=== PATIENT | female | born 1960 | race Caucasian/White ===

== ENCOUNTER → 2017-01-08 | Outpatient (CLI) | payer OTHER ==
[2016-10-08 16:42] VITALS: BP 192/97
[~2017-01-08] MED LIST: ACET-704 PO; BENZ100C PO; CYCL5TAB PO; HYDR-971 PO; NAPR500T8 PO; PRED50TA PO; PROAIR RESPICL90 MCG IH
--- NOTE | 2017-01-08 08:58 | RAD ---
Exam performed: AAA screening. Date of service: 01/08/17. Comparison: None available Technique: Real-time grayscale imaging of the aorta is performed and images are obtained. Findings: There is a mild dilation of the mid to distal abdominal aorta which measures 2.6 cm in maximum dimension. This is below 3 cm and is not considered an aneurysm. The proximal aorta measures 1.7 cm in maximum dimension and the distal aorta measures 2.2 cm in maximum diameter. Scanning in the area of lump in the mid epigastric region does not demonstrate any solid or cystic mass lesions. Impression: 1. Mild ectasia of the mid abdominal aorta without definite aneurysm. 2. No definite sonographic abnormality seen in the area of lump in the epigastric region.
== END | disposition home or self-care (01) ==
LOC: US 07:32
PROVIDERS: ATTEND Family Medicine
DX: I77.811 Abdominal aortic ectasia (principal); M25.512 Pain in left shoulder
CPT/HCPCS: 76770

== ENCOUNTER → 2017-01-09 | Outpatient (CLI) | payer OTHER ==
[2016-10-08 16:42] VITALS: BP 192/97
--- NOTE | 2017-01-09 10:39 | RAD ---
PROCEDURE MR of the left shoulder HISTORY Chronic left shoulder pain. History of rotator cuff surgery. COMPARISON July 22, 2015. TECHNIQUE Standard noncontrast images are obtained. FINDINGS There is mild motion degradation The acromioclavicular joint appears postsurgical. No acute findings or undersurface mass-effect identified. Mild signal identified within the supraspinatus and infraspinatus tendons, compatible with tendinosis. No measurable fluid gap or rupture of the rotator cuff. Subscapularis tendon also demonstrates some tendinosis without measurable tear. No advanced rotator cuff muscle atrophy or significant change in muscle bulk. Trace subdeltoid bursal fluid. There is mild heterogeneous signal and blunting of the superior labrum, appears slightly greater than what was seen on the prior study. This could represent sequela of surgical intervention, but if there has not been superior labral surgery, this is compatible with some progressive degenerative tearing. No significant joint effusion. Biceps tendinosis without rupture or dislocation. No evidence of a bone lesion. No acute fracture. No acute soft tissue injury. IMPRESSION 1. Rotator cuff tendinosis without measurable tear or rupture. 2. Mild progressive signal heterogeneity at the superior labrum. If not postsurgical, this suggests mild progression of mild degenerative tearing. Electronically signed by: Parminder Simeon MD (Jan 09, 2017 10:37:40)
== END | disposition home or self-care (01) ==
LOC: MRI 08:13
PROVIDERS: ATTEND Family Medicine
DX: M75.102 Unspecified rotator cuff tear or rupture of left shoulder, not specified as traumatic (principal)
CPT/HCPCS: 73221

== ENCOUNTER 2017-01-15 12:40 | Emergency (ER) | payer OTHER ==
[~2017-01-15 12:40] MED LIST changes: -ACET-704 PO; -BENZ100C PO; -HYDR-971 PO; -NAPR500T8 PO; -PRED50TA PO; -PROAIR RESPICL90 MCG IH
--- NOTE | 2017-01-15 13:45 | RAD ---
EXAM: Chest 2 views. HISTORY: Productive cough, chest tightness, hypertension. COMPARISON: 10/08/2016. FINDINGS: Frontal and lateral views of the chest are obtained. There are no confluent infiltrates. Hyperinflation is consistent with chronic obstructive pulmonary disease. There is a calcified granuloma in the left base. Calcified mediastinal lymph nodes are likely secondary to old granulomatous disease. There is no pneumothorax or pleural effusion. The heart is not enlarged. IMPRESSION: 1. Chronic obstructive pulmonary disease. No confluent infiltrates.
[2017-01-15] MEDS ORDERED: BENZONATATE 100 MG CAPSULE. PO ONE (14:00)
[2017-01-15] MEDS ORDERED: PREDNISONE 20 MG TABLET PO ONE (14:00)
[2017-01-15] MEDS ORDERED: IPRATRPIUM/ALBUTEROL 0.5/2.5MG 3 ML NEBU. NEB ONE (14:00)
[2017-01-15] MEDS ORDERED: PROAIR RESPICL90 MCG IH (16:15)
[2017-01-15] MEDS ORDERED: ACET-704 PO (16:15)
[2017-01-15] MEDS ORDERED: NAPR500T8 PO (16:15)
[2017-01-15] MEDS ORDERED: PRED50TA PO (16:15)
[2017-01-15] MEDS ORDERED: BENZ100C PO (16:15)
--- NOTE | 2017-01-15 16:15 | PHYS DOC ---
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 Patient denies any fever patient has history of COPD and is currently a smoker. Patient is also complaining of right lateral ankle pain after rolling it one week ago. Patient denies any loss of consciousness. Review of Systems Review of Systems Constitutional: Denies fever or chills [] Eyes: Denies change in visual acuity, redness, or eye pain [] HENT: Denies nasal congestion or sore throat [] Respiratory: cough Cardiovascular: No additional information not addressed in HPI [] GI: Denies abdominal pain, nausea, vomiting, bloody stools or diarrhea [] : Denies dysuria or hematuria [] Musculoskeletal: Right ankle pain Integument: Denies rash or skin lesions [] Neurologic: Denies headache, focal weakness or sensory changes [] Endocrine: Denies polyuria or polydipsia [] Current Medications Current Medications Current Medications Medications (Trade) Dose Ordered Sig/Mateusz Start Time Stop Time Status Last Admin Dose Admin Albuterol/ Ipratropium (Duoneb) 3 ml 1X ONCE 01/15/17 14:00 01/15/17 14:01 DC 01/15/17 14:21 3 ML Benzonatate (Tessalon Perle) 100 mg 1X ONCE 01/15/17 14:00 01/15/17 14:01 DC 01/15/17 14:08 100 MG Prednisone (Prednisone) 60 mg 1X ONCE 01/15/17 14:00 01/15/17 14:01 DC 01/15/17 14:07 60 MG Allergies Allergies Allergies Coded Allergies Type Severity Reaction Last Updated Verified No Known Drug Allergies 03/24/14 No Physical Exam Physical Exam Constitutional: Well developed, well nourished, no acute distress, non-toxic appearance. [] HENT: Normocephalic, atraumatic, bilateral external ears normal, oropharynx moist, no oral exudates, nose normal. [] Eyes: PERRLA, EOMI, conjunctiva normal, no discharge. [] Neck: Normal range of motion, no tenderness, supple, no stridor. [] Cardiovascular:Heart rate regular rhythm, no murmur [] Lungs & Thorax: Bilateral breath sounds clear to auscultation [] Abdomen: Bowel sounds normal, soft, no tenderness, no masses, no pulsatile masses. [] Skin: Warm, dry, no erythema, no rash. [] Back: No tenderness, no CVA tenderness. [] Extremities: Right ankle with no obvious deformity or ecchymosis, +2 right ankle soft tissue swelling, tenderness on palpation of the right lateral ankle. Full range of motion to the right ankle. Adequate flexion and extension of the right foot. +2 right pedal pulse. Cap refill less than 2 seconds the right lower extremity. Neurologic: Alert and oriented X 3, normal motor function, normal sensory function, no focal deficits noted. [] Psychologic: Affect normal, judgement normal, mood normal. [] Current Patient Data Vital Signs Vital Signs Date Time Temp Pulse Resp B/P Pulse Ox O2 Delivery O2 Flow Rate FiO2 01/15/17 14:21 96 Room Air 01/15/17 13:07 98.4 78 20 98.4 EKG EKG [] Radiology/Procedures Radiology/Procedures [] Course & Med Decision Making Course & Med Decision Making Pertinent Labs and Imaging studies reviewed. (See chart for details) Patient is in the ED with a productive cough for 1 week as well as right ankle pain after rolling her ankle. Chest x-ray interpreted by radiologist is noted for COPD. Patient is still a smoker, she was encouraged to consider smoking cessation. Patient to be discharged with Z-Warren, albuterol inhaler, and Tessalon Perles. Right ankle x-rays interpreted by Dr. Finch are negative for any acute findings. Discharged with ibuprofen, Tylenol 3, for the right ankle sprain. Air cast was applied to the right ankle by the ED RN, neurovascular exam done by , cap refill <2 seconds Dragon Disclaimer Dragon Disclaimer This electronic medical record was generated, in whole or in part, using a voice recognition dictation system. Departure Departure Impression: Primary Impression: Acute bronchitis Additional Impressions: Right ankle sprain Smoking addiction Disposition: HOME, SELF-CARE Condition: STABLE Referrals: NO PCP (PCP) MERCEDES VENTURA MD Follow-up with Dr. Ventura in one week if pain continues to your ankle Patient Instructions: Acute Bronchitis, Ankle Sprain Additional Instructions: You were seen for ankle sprain and bronchitis. Consider smoking cessation. Ice and elevate your ankle. Wear the air cast provided as needed. Follow-up with your own doctor or the provided doctor in one week. Scripts Benzonatate (Tessalon Perle)100 Mg Capsule1 Cap PO TID #30 CAP Prov:SHAHEED JONES APRN 01/15/17 Albuterol Sulfate (Proair Respiclick)90 Mcg Aer.pow.ba1 Puff IH PRN Q6HRS PRN SHORTNESS OF BREATH #1 INHALER Prov:SHAHEED JONES APRN 01/15/17 Prednisone 50 Mg Tablet1 Tab PO DAILY #5 TAB Prov:SHAHEED JONES APRN 01/15/17 Naproxen 500 Mg Tablet.dr1 Tab PO BID #60 TAB Ref 2 Prov:SHAHEED JONES APRN 01/15/17 Acetaminophen With Codeine (Tylenol With Codeine #3 Tablet)1 Each Tablet1 Tab PO PRN Q6HRS PRN PAIN #30 TAB Prov:SHAHEED JONES [employer]ER 01/15/17 Problem Qualifiers Primary Impression: Acute bronchitis Bronchitis organism: unspecified organism Qualified Code: J20.9 - Acute bronchitis, unspecified Additional Impressions: Right ankle sprain Encounter type: initial encounter Involved ligament of ankle: unspecified ligament Qualified Code: S93.401A - Sprain of unspecified ligament of right ankle, initial encounter SHAHEED JONES APRN Jan 15, 2017 16:15
--- NOTE | 2017-01-15 16:21 | RAD ---
Three-view right ankle radiographs 01/15/2017 Clinical history: Right ankle injury one week ago with lateral ankle pain. AP, lateral and oblique digital radiographs of the right ankle were obtained. The right ankle mortise is intact. No fracture or dislocation is seen. Mild to moderate degenerative changes are seen involving the right ankle joint. Mild enthesophyte formation is seen involving the right posterior calcaneus. Impression: No fracture or dislocation of the right ankle is seen.
[2017-01-15 16:31] VITALS: BP 110/72
== END 2017-01-15 16:32 | disposition home or self-care (01) ==
LOC: ER 12:40
DX: S93.401A Sprain of unspecified ligament of right ankle, initial encounter (principal); J20.9 Acute bronchitis, unspecified; I10 Essential (primary) hypertension; J44.9 Chronic obstructive pulmonary disease, unspecified; G89.29 Other chronic pain; Z90.710 Acquired absence of both cervix and uterus; Z90.89 Acquired absence of other organs; F17.200 Nicotine dependence, unspecified, uncomplicated; X50.9XXA Other and unspecified overexertion or strenuous movements or postures, initial encounter; Y93.89 Activity, other specified; Y99.8 Other external cause status; Y92.89 Other specified places as the place of occurrence of the external cause
CPT/HCPCS: 71020; 73610; 94640; 99284; J7512; J7620; L4350

== ENCOUNTER 2017-01-17 14:07 | Emergency (ER) | payer OTHER ==
[~2017-01-17] VITALS: Ht 160 cm; Wt 49.9 kg
[~2017-01-17 14:07] MED LIST changes: +ACET-704 PO; +BENZ100C PO; +NAPR500T8 PO; +PRED50TA PO; +PROAIR RESPICL90 MCG IH
[2017-01-17 14:28] VITALS: BP 132/65
[2017-01-17] MEDS ORDERED: HYDR-971 PO (15:02)
--- NOTE | 2017-01-17 15:02 | PHYS DOC ---
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 She was seen here 2 days ago and diagnosed with bronchitis and a right ankle sprain. She was prescribed Tylenol #3 for her ankle pain. She was also prescribed naproxen, an albuterol inhaler, Tessalon perles, and prednisone. She has taken all of the other medications in the past without reaction. She believes that the nausea and vomiting are due to the codeine in the Tylenol #3. She is wearing the air cast provided at her last visit but is still having considerable pain in the right ankle. She states that she absolutely must return to work because she cannot afford to miss any more days. She has an appointment scheduled with Dr. Ventura in orthopedics in 2 days for her ankle. She does not have a PCP. Review of Systems Review of Systems Constitutional: Denies fever or chills. [] GI: Denies abdominal pain, bloody stools or diarrhea. Reports nausea and vomiting. Musculoskeletal: Denies back pain. Reports right ankle pain. Integument: Denies rash or skin lesions. [] Neurologic: Denies headache, focal weakness or sensory changes. [] Allergies Allergies Allergies Coded Allergies Type Severity Reaction Last Updated Verified morphine Allergy Intermediate Itching 01/17/17 Yes tramadol Adverse Reaction Severe 'seizures' 01/17/17 Yes acetaminophen Adverse Reaction Intermediate Nausea and Vomiting 01/17/17 Yes codeine Adverse Reaction Intermediate Nausea and Vomiting 01/17/17 Yes naproxen Adverse Reaction Intermediate Nausea and Vomiting 01/17/17 Yes Physical Exam Physical Exam Constitutional: Well developed, well nourished, no acute distress, non-toxic appearance. [] HENT: Normocephalic, atraumatic, oropharynx moist. [] Eyes: PERRLA, EOMI, conjunctiva normal, no discharge. [] Abdomen: Bowel sounds normal, soft, no tenderness, no masses, no pulsatile masses. [] Skin: Warm, dry, no erythema, no rash. There is minimal ecchymosis and edema over the lateral right foot and ankle. Extremities: Right lateral malleolus and 5th metatarsal tenderness, ROM mildly decreased due to pain, mild edema. 2+ pedal pulses. Less than 2 second capillary refill in the toes. Light touch sensation intact in the toes. Neurologic: Alert and oriented X 3, normal motor function, normal sensory function, no focal deficits noted. [] Psychologic: Affect normal, judgement normal, mood normal. [] Current Patient Data Vital Signs Vital Signs Date Time Temp Pulse Resp B/P Pulse Ox O2 Delivery O2 Flow Rate FiO2 01/17/17 14:28 98.0 79 20 97 Room Air 98.0 EKG EKG [] Radiology/Procedures Radiology/Procedures [] Course & Med Decision Making Course & Med Decision Making Pertinent Labs and Imaging studies reviewed. (See chart for details) [] Dragon Disclaimer Dragon Disclaimer This electronic medical record was generated, in whole or in part, using a voice recognition dictation system. Departure Departure Impression: Primary Impression: Adverse drug effect Additional Impression: Ankle sprain Disposition: 01 HOME, SELF-CARE Condition: STABLE Referrals: DENNIS WILSON MD (PCP) Patient Instructions: Ankle Sprain, [id number], Drug Reaction, GI Intolerance Additional Instructions: Please take the prescribed pain medication as directed. Do not drive or operate heavy machinery while taking pain medication. Please follow up with Dr. Ventura as scheduled. Return to the emergency department if you have any new or concerning symptoms. Scripts Hydrocodone/Apap 5-325 ([place] 5-325 Tablet)1 Each Tablet1 Tab PO PRN Q6HRS PRN PAIN #20 TAB Prov:SADIA FOX 01/17/17 Problem Qualifiers Primary Impression: Adverse drug effect Encounter type: initial encounter Qualified Code: T88.7XXA - Unspecified adverse effect of drug or medicament, initial encounter Additional Impression: Ankle sprain Encounter type: initial encounter Involved ligament of ankle: unspecified ligament Laterality: right Qualified Code: S93.401A - Sprain of unspecified ligament of right ankle, initial encounter SADIA FOX Jan 17, 2017 15:02
== END 2017-01-17 15:07 | disposition home or self-care (01) ==
LOC: ER 14:07
DX: S93.401A Sprain of unspecified ligament of right ankle, initial encounter (principal); T50.995A Adverse effect of other drugs, medicaments and biological substances, initial encounter; F17.210 Nicotine dependence, cigarettes, uncomplicated; G89.29 Other chronic pain; I10 Essential (primary) hypertension; Z88.6 Allergy status to analgesic agent; Z88.5 Allergy status to narcotic agent; X58.XXXA Exposure to other specified factors, initial encounter; Y99.8 Other external cause status; Y93.89 Activity, other specified; Y92.89 Other specified places as the place of occurrence of the external cause
CPT/HCPCS: 99283

== ENCOUNTER → 2017-03-21 | Outpatient (CLI) | payer OTHER ==
[~2017-03-21] MED LIST changes: +HYDR-971 PO
--- NOTE | 2017-03-21 12:38 | RAD ---
Exam performed: CT abdomen pelvis without contrast. History: Abdominal aortic aneurysm. Date of service: 03/21/17. Comparison: Limited abdominal ultrasound from 01/08/17 Technique: Contiguous helical acquisitions are obtained through the abdomen and pelvis without oral IV contrast. Sagittal and coronal reformatted images are obtained and reviewed. Findings: Linear right basilar opacity likely atelectasis. Calcifications in the left lung base. No pleural effusion. Heart size is normal. Lack of IV contrast limits evaluation of abdominal viscera, however the liver, spleen and gallbladder appears normal. Pancreas is poorly visualized. The pancreatic tail is partially seen, body and head of pancreas is suboptimally evaluated. Atheromatous aortic calcification with mild ectasia of the infrarenal aorta measures up to 2.8 cm. Questionable fullness in the periaortic region may be related to adjacent bowel loops or surrounding pancreas. Both adrenal glands and bilateral kidneys are normal in size. No hydronephrosis or nephrolithiasis is seen. Small bowel loops are nondilated and unremarkable. Scattered stool in the colon. Urinary bladder is distended. Colon is normal. Mild diverticulosis. No abnormal fluid collections or pelvic mass lesions seen. Interrogation of bone windows demonstrates spondylotic changes. Impression: 1. Study limited due to noncontrast technique. 2. Right basilar atelectasis. 3. Questionable fullness in the periaortic region. It is not clear if this is related to adjacent nonopacified loops and surrounding pancreas. Periaortic lymphadenopathy or soft tissue abnormality is seen in retroperitoneal fibrosis cannot be excluded with certainty. Evaluation with contrast-enhanced CT of the abdomen and pelvis may be of additional benefit. PQRS Compliance Statement: One or more of the following individualized dose reduction techniques were utilized for this examination: 1. Automated exposure control 2. Adjustment of the mA and/or kV according to patient size 3. Use of iterative reconstruction technique
== END | disposition home or self-care (01) ==
LOC: CT 12:46
PROVIDERS: ATTEND Family Medicine
DX: J98.11 Atelectasis (principal)
CPT/HCPCS: 74176

== ENCOUNTER 2017-04-11 14:20 | Emergency (ER) | payer MEDICARE, OTHER ==
[~2017-04-11] VITALS: Ht 160 cm; Wt 45.4 kg
[2017-04-11] MEDS ORDERED: IOHEXOL 300 MG/ML 75 ML VIAL IV ONE (15:15)
[2017-04-11] MEDS ORDERED: ASPIRIN CHEWABLE 81 MG TABLET. PO ONE (15:30)
[2017-04-11] MEDS ORDERED: CONTRAST GIVEN MC PRN (15:30)
[2017-04-11 15:51] LABS: BASO # 0.1 x10^3/uL (0.0-0.2); BASO % 1 % (0-3); EOS % 1 % (0-3); LYMPH # 2.1 x10^3/uL (1.0-4.8); LYMPH % 27 % (24-48); MEAN CORPUSCULAR HEMOGLOBIN 34 pg (25-35); MEAN CORPUSCULAR HGB CONC 34 g/dL (31-37); MEAN CORPUSCULAR VOLUME 99 fL (79-100); MONO % 5 % (0-9); NEUT % 66 % (31-73); PLATELET COUNT 381 x10^3/uL (140-400); RED BLOOD COUNT 4.14 x10^6/uL (3.50-5.40); RED CELL DISTRIBUTION WIDTH 13.9 % (11.5-14.5); WHITE BLOOD COUNT 7.7 x10^3/uL (4.0-11.0)
--- NOTE | 2017-04-11 16:06 | EKG ---
[facility] [address] [place] [address] Test Date: 2017-04-11 Test Time: 14:31:19 Pat Name: ORLIN LANTIGUA Department: Room: Gender: F Director Of Finance: : 1960 Requested By: LEO KINSEY Order Number: [id number] Reading MD: Troy Rowe Measurements Intervals [place] Rate: 67 P: 59 VA: 142 QRS: 53 QRSD: 80 T: 33 QT: 396 QTc: 421 Interpretive Statements SINUS RHYTHM Electronically Signed On 04-15-2017 12:50:27 CDT by Troy Rowe
--- NOTE | 2017-04-11 16:09 | PHYS DOC ---
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 Patient states the pain has been constant and nothing makes it better or worse. Patient scrubbed pain is central nonradiating. Patient has no significant cardiac history however the smoker with hypertension. Patient does note that she is a AAA that measured 2.9-3 cm in February. Patient denies any nausea vomiting diarrhea. Patient denies any fevers. Patient is no other complaints. Pertinent exam findings: Heart was regular rate and rhythm without murmurs Lungs are clear to auscultation bilaterally without crackles wheezes or rales ED course: Patient was seen and evaluated emergency room CBC, CMP, EKG, CT angiogram of the chest was ordered, aspirin was given 1715: Patient reexamined and she still having chest tightness and I recommended the patient be admitted to hospital for further cardiac workup. Patient declined admission under seen all risks including and disability and wanted to go home and follow-up with her PCP tomorrow. Strict return precautions were given to the patient. Patient will be discharged home. Pertinent results: 1431: EKG shows normal sinus rhythm rate of [address] angiogram of the chest unremarkable for acute PE or dissection Troponin negative MDM: After reviewing the chart, CC/HPI/PMH, physical exam, [lab results], [ radiological results], I do not believe the patient have an acute NE, PE, thoracic aortic dissection. Given the patient's ongoing chest tightness I recommended the patient be admitted to the hospital for serial EKGs and troponins. Patient declined the admission under seen all risks including and disability. Patient to go home and follow-up with PCP tomorrow. Additional verbal discharge instructions were provided to the patient and that if symptoms get worse or any new symptoms arise that are worrisome to the patient she is to return to the emergency room immediately Review of Systems Review of Systems GEN: Denies fevers, chills, sweats HEENT: Denies blurred vision, sore throat CV: chest pain RESP: Denies shortness of air, cough GI: Denies n/v/d NEURO: Denies confusion, dizziness MSK: Denies weakness, joint pain/swelling Current Medications Current Medications Current Medications Medications (Trade) Dose Ordered Sig/Mateusz Start Time Stop Time Status Last Admin Dose Admin Aspirin (Children'S Aspirin) 324 mg 1X ONCE 04/11/17 15:30 04/11/17 15:31 DC 04/11/17 15:35 324 MG Info (Do NOT chart on this entry -- for MONITORING) 1 each PRN DAILY PRN 04/11/17 15:30 04/13/17 15:29 Iohexol (Omnipaque 300 Mg/ml) 75 ml 1X ONCE 04/11/17 15:15 04/11/17 15:17 DC 04/11/17 16:49 75 ML Lorazepam (Ativan) 0.5 mg 1X ONCE 04/11/17 16:15 04/11/17 16:16 DC 04/11/17 16:17 0.5 MG Allergies Allergies Allergies Coded Allergies Type Severity Reaction Last Updated Verified morphine Allergy Intermediate Itching 01/17/17 Yes tramadol Adverse Reaction Severe 'seizures' 01/17/17 Yes acetaminophen Adverse Reaction Intermediate Nausea and Vomiting 01/17/17 Yes codeine Adverse Reaction Intermediate Nausea and Vomiting 01/17/17 Yes naproxen Adverse Reaction Intermediate Nausea and Vomiting 01/17/17 Yes Physical Exam Physical Exam GEN.: No apparent distress. Alert and oriented. HEENT: Head is normocephalic, atraumatic NECK: Supple. LUNGS: CTAB. HEART: RRR, S1, S2 present. Peripheral pulses intact ABDOMEN: Soft, nontender. Positive bowel sounds. EXTREMITIES: Without any cyanosis. NEUROLOGIC: Normal speech, normal tone PSYCHIATRIC: Normal affect, normal mood. SKIN: No ulcerations Current Patient Data Vital Signs Vital Signs Date Time Temp Pulse Resp B/P (MAP) Pulse Ox O2 Delivery O2 Flow Rate FiO2 04/11/17 14:41 98.4 71 20 130/78 (95) 99 Room Air 98.4 Lab Values Laboratory Tests Test 04/11/17 15:40 White Blood Count 7.7 x10^3/uL (4.0-11.0) Red Blood Count 4.14 x10^6/uL (3.50-5.40) Hemoglobin 14.0 g/dL (12.0-15.5) Hematocrit 41.0 % (36.0-47.0) Mean Corpuscular Volume 99 fL (79-100) Mean Corpuscular Hemoglobin 34 pg (25-35) Mean Corpuscular Hemoglobin Concent 34 g/dL (31-37) Red Cell Distribution Width 13.9 % (11.5-14.5) Platelet Count 381 x10^3/uL (140-400) Neutrophils (%) (Auto) 66 % (31-73) Lymphocytes (%) (Auto) 27 % (24-48) Monocytes (%) (Auto) 5 % (0-9) Eosinophils (%) (Auto) 1 % (0-3) Basophils (%) (Auto) 1 % (0-3) Neutrophils # (Auto) 5.0 x10^3uL (1.8-7.7) Lymphocytes # (Auto) 2.1 x10^3/uL (1.0-4.8) Monocytes # (Auto) 0.4 x10^3/uL (0.0-1.1) Eosinophils # (Auto) 0.1 x10^3/uL (0.0-0.7) Basophils # (Auto) 0.1 x10^3/uL (0.0-0.2) Sodium Level 138 mmol/L (136-145) Potassium Level 3.8 mmol/L (3.5-5.1) Chloride Level 100 mmol/L (98-107) Carbon Dioxide Level 31 mmol/L (21-32) Anion Gap 7 (6-14) Blood Urea Nitrogen 12 mg/dL (7-20) Creatinine 0.7 mg/dL (0.6-1.0) Estimated GFR (Cockcroft-Gault) 87.2 BUN/Creatinine Ratio 17 (6-20) Glucose Level 85 mg/dL (70-99) Calcium Level 8.8 mg/dL (8.5-10.1) Total Bilirubin 0.2 mg/dL (0.2-1.0) Aspartate Amino Transferase (AST) 17 U/L (15-37) Alanine Aminotransferase (ALT) 21 U/L (14-59) Alkaline Phosphatase 47 U/L (46-116) Troponin I Quantitative < 0.017 ng/mL (0.000-0.055) Total Protein 6.4 g/dL (6.4-8.2) Albumin 3.7 g/dL (3.4-5.0) Albumin/Globulin Ratio 1.4 (1.0-1.7) Laboratory Tests 04/11/17 15:40 Laboratory Tests 04/11/17 15:40 EKG EKG [] Radiology/Procedures Radiology/Procedures CT angios of the chest: Impression: 1. No acute abnormality identified in the chest. 2. No evidence of thoracic aortic dissection. Ectatic ascending aorta. 3. Emphysema.[] Course & Med Decision Making Course & Med Decision Making Pertinent Labs and Imaging studies reviewed. (See chart for details) [] Dragon Disclaimer Dragon Disclaimer This electronic medical record was generated, in whole or in part, using a voice recognition dictation system. Departure Departure Impression: Primary Impression: Chest wall pain Disposition: 01 HOME, SELF-CARE Condition: IMPROVED Referrals: ROMERO JARVIS MD (PCP) Patient Instructions: Chest Pain (Nonspecific) Additional Instructions: Recommend follow-up with PCP in one to 2 days LEO KINSEY DO April 11, 2017 16:09
[2017-04-11 16:15] LABS: CALCIUM 8.8 mg/dL (8.5-10.1); CREATININE 0.7 mg/dL (0.6-1.0); GFR 87.2; POTASSIUM 3.8 mmol/L (3.5-5.1)
[2017-04-11] MEDS ORDERED: LORazepam 1 MG TABLET PO ONE (16:15)
[2017-04-11 16:19] LABS: ALBUMIN 3.7 g/dL (3.4-5.0); ALBUMIN/GLOBULIN RATIO 1.4 (1.0-1.7); TOTAL BILIRUBIN 0.2 mg/dL (0.2-1.0); TOTAL PROTEIN 6.4 g/dL (6.4-8.2)
[2017-04-11 16:30] VITALS: BP 124/76
--- NOTE | 2017-04-11 17:03 | RAD ---
CT chest angiogram with contrast History: Chest pain, abdominal aortic aneurysm. Comparison: None. Technique: Helical CT angiogram of the chest with attention to the aorta was performed after the administration of intravenous contrast, 75 mL Omnipaque 300. Axial 2-D reconstructions were obtained. Rotating volume rendered 3-D reconstructions of the aorta were also obtained. One or more of the following individualized dose reduction techniques were utilized for the study: Automated exposure control Adjustment of mA and/or kV according to patient's size Use of iterative reconstruction technique. 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 Thoracic aorta is without evidence of dissection. Mid ascending thoracic aorta has diameter of 3.8 cm. Aortic arch has diameter 2.5 cm. Descending thoracic aorta has diameter 2.3 cm. Very mild aortic atherosclerosis is seen. No pericardial thickening is identified. Trachea and mainstem bronchi appear patent. Thyroid is symmetric. No mediastinal lymphadenopathy is seen. Examination was not performed to evaluate the pulmonary arteries and pulmonary arteries are not adequately opacified to evaluate for pulmonary embolism. Mild-moderate emphysematous changes of lungs are seen. No pneumothorax or pleural effusion is identified. Focal atelectasis versus scarring is seen at the right lower lobe. No pneumothorax or pleural effusion is seen. Visualized abdominal aorta demonstrates at least ectasia with a maximum dimension of 2.8 cm. Impression: 1. No acute abnormality identified in the chest. 2. No evidence of thoracic aortic dissection. Ectatic ascending aorta. 3. Emphysema.
== END 2017-04-11 17:25 | disposition home or self-care (01) ==
LOC: ER 14:20
DX: R07.89 Other chest pain (principal); F41.9 Anxiety disorder, unspecified; F32.9 Major depressive disorder, single episode, unspecified; H40.9 Unspecified glaucoma; I10 Essential (primary) hypertension; G89.29 Other chronic pain; F17.200 Nicotine dependence, unspecified, uncomplicated; Z90.710 Acquired absence of both cervix and uterus; Z88.5 Allergy status to narcotic agent; Z88.6 Allergy status to analgesic agent
CPT/HCPCS: 36415; 71275; 80053; 84484; 85027; 93005; 99285; Q9967

== ENCOUNTER → 2018-07-02 | Outpatient (CLI) | payer OTHER ==
--- NOTE | 2018-07-02 15:30 | KCIC ---
MR of the right shoulder Indication: Right shoulder pain and decreased range of motion. Comparison: July 22, 2015 Technique: Standard multiplanar sequences are obtained. Findings: Artifact: No significant image degradation. Acromioclavicular joint: There appear to be postsurgical changes, without significant undersurface mass effect. No acute findings. There is postoperative susceptibility artifact. Rotator cuff: * Supraspinatus-infraspinatus tendon: Postsurgical artifact. No evidence of full-thickness rupture or retraction. * Subscapularis tendon: Intact * Muscle bulk: Mild atrophy * Subacromial subdeltoid bursa: Trace effusion. Fluid: Trace glenohumeral effusion. Glenohumeral cartilage: Mildly degenerative. Labrum: No evidence of labral detachment. Biceps tendon: Very thin and poorly visualized, similar to prior study. Bones: Postsurgical changes and cystic change at the humeral head. No acute fracture. No aggressive bone destruction. Soft tissue: No acute findings. Impression: 1. Postsurgical changes at the rotator cuff and acromioclavicular joint. 2. No evidence of recurrent full-thickness rotator cuff tear. Electronically signed by: Parminder Simeon MD (07/02/2018 3:28 PM) [facility]
== END | disposition home or self-care (01) ==
LOC: KCIC MRI 13:40
PROVIDERS: ATTEND Family Medicine
DX: M19.011 Primary osteoarthritis, right shoulder (principal); M62.511 Muscle wasting and atrophy, not elsewhere classified, right shoulder; I10 Essential (primary) hypertension; Z98.890 Other specified postprocedural states; Z88.5 Allergy status to narcotic agent; Z88.6 Allergy status to analgesic agent; Z87.891 Personal history of nicotine dependence; Z90.710 Acquired absence of both cervix and uterus
CPT/HCPCS: 73221

== ENCOUNTER 2019-09-12 08:49 | Emergency (ER) | payer SELFPAY ==
[~2019-09-12] VITALS: Ht 160 cm; Wt 49.9 kg
[~2019-09-12 08:49] MED LIST changes: +HYDR-3164 PO; -HYDR-971 PO
[2019-09-12] MEDS ORDERED: KETOROLAC 15 MG/ML VIAL. IV STA (09:25)
[2019-09-12] MEDS ORDERED: IPRATRPIUM/ALBUTEROL 0.5/2.5MG 3 ML NEBU. NEB ONE (09:30)
[2019-09-12] MEDS ORDERED: methylPREDNISolone SOD SUCC PF 125 MG/2 ML VIAL. IV ONE (09:30)
[2019-09-12] MEDS ORDERED: ONDANSETRON PF 4 MG/2 ML VIAL. IV ONE (09:30)
--- NOTE | 2019-09-12 09:32 | PHYS DOC ---
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 She states that she's vomited 4 times over the last 3 months. She states the pain is located on her right side. She states that she stopped taking hydrocodone a month ago as her doctor told her that she had to choose between Xanax or hydrocodone. She rates her pain today is 8 out of 10 in severity and sharp. Review of Systems Review of Systems Constitutional: Reports hot flashes. Eyes: Denies change in visual acuity, redness, or eye pain [] HENT: Denies nasal congestion or sore throat [] Respiratory: Reports cough and shortness of breath [] Cardiovascular: No additional information not addressed in HPI [] GI: Reports nausea, and vomiting. Denies abdominal pain, bloody stools or diarrhea [] : Denies dysuria or hematuria [] Musculoskeletal: Denies back pain or joint pain [] Integument: Denies rash or skin lesions [] Neurologic: Denies headache, focal weakness or sensory changes [] Endocrine: Denies polyuria or polydipsia [] Complete systems were reviewed and found to be within normal limits, except as documented in this note. Current Medications Current Medications Current Medications Medications (Trade) Dose Ordered Sig/Mateusz Start Time Stop Time Status Last Admin Dose Admin Albuterol/ Ipratropium (Duoneb) 3 ml 1X ONCE 09/12/19 09:30 09/12/19 09:31 DC 09/12/19 09:43 3 ML Ketorolac Tromethamine (Toradol 15mg Vial) 10 mg 1X STAT 09/12/19 09:25 09/12/19 09:29 DC 09/12/19 09:55 10 MG Methylprednisolone Sodium Succinate (SOLU-Medrol 125MG VIAL) 125 mg 1X ONCE 09/12/19 09:30 09/12/19 09:31 DC 09/12/19 09:55 125 MG Ondansetron HCl (Zofran) 4 mg 1X ONCE 09/12/19 09:30 09/12/19 09:31 DC 09/12/19 09:55 4 MG Allergies Allergies Allergies Coded Allergies Type Severity Reaction Last Updated Verified morphine Allergy Intermediate Itching 01/17/17 Yes tramadol Adverse Reaction Severe 'seizures' 01/17/17 Yes acetaminophen Adverse Reaction Intermediate Nausea and Vomiting 01/17/17 Yes codeine Adverse Reaction Intermediate Nausea and Vomiting 01/17/17 Yes naproxen Adverse Reaction Intermediate Nausea and Vomiting 01/17/17 Yes Physical Exam Physical Exam Constitutional: Well developed, well nourished, anxious, and tearful, non-toxic appearance. [] HENT: Normocephalic, atraumatic, bilateral external ears normal, oropharynx moist, no oral exudates, nose normal. [] Eyes: PERRLA, EOMI, conjunctiva normal, no discharge. [] Neck: Normal range of motion, no tenderness, supple, no stridor. [] Cardiovascular:Heart rate regular rhythm, no murmur [] Lungs & Thorax: Bilateral breath sounds clear to auscultation with exception of scattered wheeze on left lower. Abdomen: Bowel sounds normal, soft, no tenderness, no masses, no pulsatile masses. [] Skin: Warm, dry, no erythema, no rash. [] Back: No tenderness, no CVA tenderness. [] Extremities: No tenderness, no cyanosis, no clubbing, ROM intact, no edema. [] Neurologic: Alert and oriented X 3, normal motor function, normal sensory function, no focal deficits noted. [] Psychologic: Affect normal, judgement normal, mood normal. [] Current Patient Data Vital Signs Vital Signs Date Time Temp Pulse Resp B/P (MAP) Pulse Ox O2 Delivery O2 Flow Rate FiO2 09/12/19 09:44 94 Room Air 09/12/19 09:13 99.5 85 20 157/89 (111) 99.5 Lab Values Laboratory Tests Test 09/12/19 09:15 09/12/19 09:40 Urine Collection Type Void Urine Color Yellow Urine Clarity Clear Urine pH 6.5 Urine Specific [place] <=1.005 Urine Protein Negative mg/dL (NEG-TRACE) Urine Glucose (UA) Negative mg/dL (NEG) Urine Ketones (Stick) Negative mg/dL (NEG) Urine Blood Trace (NEG) Urine Nitrite Negative (NEG) Urine Bilirubin Negative (NEG) Urine Urobilinogen Dipstick 0.2 mg/dL (0.2 mg/dL) Urine Leukocyte Esterase Small (NEG) Urine RBC 0 /HPF (0-2) Urine WBC 5-10 /HPF (0-4) Urine Squamous Epithelial Cells Many /LPF Urine Bacteria Many /HPF (0-FEW) White Blood Count 5.8 x10^3/uL (4.0-11.0) Red Blood Count 4.81 x10^6/uL (3.50-5.40) Hemoglobin 15.9 g/dL (12.0-15.5) H Hematocrit 46.6 % (36.0-47.0) Mean Corpuscular Volume 97 fL (79-100) Mean Corpuscular Hemoglobin 33 pg (25-35) Mean Corpuscular Hemoglobin Concent 34 g/dL (31-37) Red Cell Distribution Width 14.4 % (11.5-14.5) Platelet Count 315 x10^3/uL (140-400) Neutrophils (%) (Auto) 61 % (31-73) Lymphocytes (%) (Auto) 30 % (24-48) Monocytes (%) (Auto) 7 % (0-9) Eosinophils (%) (Auto) 1 % (0-3) Basophils (%) (Auto) 1 % (0-3) Neutrophils # (Auto) 3.5 x10^3/uL (1.8-7.7) Lymphocytes # (Auto) 1.7 x10^3/uL (1.0-4.8) Monocytes # (Auto) 0.4 x10^3/uL (0.0-1.1) Eosinophils # (Auto) 0.1 x10^3/uL (0.0-0.7) Basophils # (Auto) 0.0 x10^3/uL (0.0-0.2) Sodium Level 139 mmol/L (136-145) Potassium Level 3.9 mmol/L (3.5-5.1) Chloride Level 102 mmol/L (98-107) Carbon Dioxide Level 30 mmol/L (21-32) Anion Gap 7 (6-14) Blood Urea Nitrogen 7 mg/dL (7-20) Creatinine 0.7 mg/dL (0.6-1.0) Estimated GFR (Cockcroft-Gault) 86.6 BUN/Creatinine Ratio 10 (6-20) Glucose Level 84 mg/dL (70-99) Calcium Level 8.7 mg/dL (8.5-10.1) Total Bilirubin 0.3 mg/dL (0.2-1.0) Aspartate Amino Transferase (AST) 13 U/L (15-37) L Alanine Aminotransferase (ALT) 16 U/L (14-59) Alkaline Phosphatase 73 U/L (46-116) Troponin I Quantitative < 0.017 ng/mL (0.000-0.055) Total Protein 7.1 g/dL (6.4-8.2) Albumin 3.7 g/dL (3.4-5.0) Albumin/Globulin Ratio 1.1 (1.0-1.7) Thyroid Stimulating Hormone (TSH) 2.524 uIU/mL (0.358-3.74) Laboratory Tests 09/12/19 09:40 Laboratory Tests 09/12/19 09:40 EKG EKG []EKG interpreted by Dr. Dale PERERA Elevated isolated in V3, Not congruent or contiguous. Sinus rate of 69. Compared to EKG from 04/11/2017 Radiology/Procedures Radiology/Procedures [][facility] [address] [place], [place] [id number] IMAGING REPORT Signed PATIENT: ORLIN LANTIGUA ACCOUNT: [id number] : 1960 LOCATION: ER AGE: 58 SEX: F EXAM STATUS: REG ER ORD. PHYSICIAN: WILLARD ESQUIVEL APRN REASON: SOB PROCEDURE: CHEST PA & LATERAL CHEST PA LATERAL History: Shortness of breath Comparison: January 15, 2017 Findings: Hyperinflation. No consolidation or pleural effusion. Normal heart size. No pneumothorax. Impression: 1. Hyperinflation. 2. Otherwise, negative chest. Electronically signed by: Venancio Wall DO (09/12/2019 10:15 AM) [facility] DICTATED and SIGNED BY: VENANCIO WALL DO DATE: 09/12/19 1015 Course & Med Decision Making Course & Med Decision Making Pertinent Labs and Imaging studies reviewed. (See chart for details) Will get Chest x-ray, labs, and give supportive care. Labs are unremarkable. Urine shows leukocytes but she is having no urinary symptoms. Chest x-ray shows hyperinflation. I suspect she has COPD and is having an exacerbation. Will treat with prednisone outpatient and have follow up with Dr. Rodriguez. Martinez Disclaimer Martinez Disclaimer This electronic medical record was generated, in whole or in part, using a voice recognition dictation system. Departure Departure Impression: Primary Impression: COPD exacerbation Disposition: HOME, SELF-CARE Condition: STABLE Referrals: ROMERO RODRIGUEZ MD (PCP) Patient Instructions: Chronic Obstructive Pulmonary Disease Exacerbation Additional Instructions: Thank you for visiting [facility]. We appreciate you trusting us with your care. If any additional problems come up don't hesitate to return to visit us. Please follow up with your primary care provider so they can plan additional care if needed and know about the problem that you had. If symptoms worsen come back to the Emergency Department. Any concerning symptoms that start such as chest pain, shortness of air, weakness or numbness on one side of the body, running high fevers or any other concerning symptoms return to the ER. Please follow up with your doctor for further care. Scripts Methylprednisolone (MEDROL) 4 Mg Tab.ds.pk 1 PKG PO UD, #1 PKG Prov: WILLARD ESQUIVEL APRN 09/12/19 WILLARD ESQUIVEL APRN Sep 12, 2019 09:32
[2019-09-12 09:47] LABS: BILIRUBIN,URINE NEGATIVE (NEG); CLARITY,URINE CLEAR; COLOR,URINE YELLOW; NITRITE,URINE NEGATIVE (NEG); PH,URINE 6.5; PROTEIN,URINE NEGATIVE (NEG-TRACE); UROBILINOGEN,URINE 0.2 mg/dL (0.2 mg/dL)
[2019-09-12 09:56] LABS: SQUAMOUS EPITHELIAL CELL,UR MANY /LPF
[2019-09-12 09:56] LABS: BASO % 1 % (0-3); EOS # 0.1 x10^3/uL (0.0-0.7); EOS % 1 % (0-3); HEMATOCRIT 46.6 % (36.0-47.0); HEMOGLOBIN 15.9 g/dL (12.0-15.5); LYMPH # 1.7 x10^3/uL (1.0-4.8); LYMPH % 30 % (24-48); MEAN CORPUSCULAR HEMOGLOBIN 33 pg (25-35); MEAN CORPUSCULAR HGB CONC 34 g/dL (31-37); MEAN CORPUSCULAR VOLUME 97 fL (79-100); MONO # 0.4 x10^3/uL (0.0-1.1); MONO % 7 % (0-9); NEUT # 3.5 x10^3/uL (1.8-7.7); NEUT % 61 % (31-73); PLATELET COUNT 315 x10^3/uL (140-400); RED BLOOD COUNT 4.81 x10^6/uL (3.50-5.40); RED CELL DISTRIBUTION WIDTH 14.4 % (11.5-14.5); WHITE BLOOD COUNT 5.8 x10^3/uL (4.0-11.0)
[2019-09-12 09:57] LABS: BACTERIA,URINE MANY /HPF (0-FEW)
[2019-09-12 09:58] LABS: RBC,URINE 0 /HPF (0-2)
[2019-09-12 10:05] LABS: CALCIUM 8.7 mg/dL (8.5-10.1); CREATININE 0.7 mg/dL (0.6-1.0); GFR 86.6; POTASSIUM 3.9 mmol/L (3.5-5.1)
[2019-09-12 10:11] LABS: ALBUMIN 3.7 g/dL (3.4-5.0); ALBUMIN/GLOBULIN RATIO 1.1 (1.0-1.7); TOTAL BILIRUBIN 0.3 mg/dL (0.2-1.0); TOTAL PROTEIN 7.1 g/dL (6.4-8.2)
--- NOTE | 2019-09-12 10:19 | RAD ---
CHEST PA LATERAL History: Shortness of breath Comparison: January 15, 2017 Findings: Hyperinflation. No consolidation or pleural effusion. Normal heart size. No pneumothorax. Impression: 1. Hyperinflation. 2. Otherwise, negative chest. Electronically signed by: Venancio Wall DO (09/12/2019 10:15 AM) [facility]
--- NOTE | 2019-09-12 10:48 | EKG ---
[facility] [address] [place] [address] Test Date: 2019-09-12 Test Time: 09:32:34 Pat Name: ORLIN LANTIGUA Department: Room: Gender: F [employer]: : 1960 Requested By: WILLARD ESQUIVEL Order Number: [id number] Reading MD: Measurements Intervals [place] Rate: 69 P: 42 NM: 146 QRS: 37 QRSD: 80 T: 24 QT: 396 QTc: 426 Interpretive Statements SINUS RHYTHM NORMAL ECG RI6.01 No previous ECG available for comparison
[2019-09-12] MEDS ORDERED: METH4TAB2 PO (10:49)
[2019-09-12 10:53] VITALS: BP 118/76
== END 2019-09-12 11:25 | disposition home or self-care (01) ==
LOC: ER 08:49
DX: J44.1 Chronic obstructive pulmonary disease with (acute) exacerbation (principal); R11.2 Nausea with vomiting, unspecified; F41.9 Anxiety disorder, unspecified; F32.9 Major depressive disorder, single episode, unspecified; I10 Essential (primary) hypertension; G89.29 Other chronic pain; Z98.890 Other specified postprocedural states; Z90.710 Acquired absence of both cervix and uterus; Z88.5 Allergy status to narcotic agent; Z88.6 Allergy status to analgesic agent
CPT/HCPCS: 36415; 71046; 80053; 81001; 84443; 84484; 85025; 87086; 87186; 93005; 94640; 96374; 96375; 99285; J1885; J2405; J2930; J7620; 99284